=== PATIENT | female | born 1980 | race Hispanic/Latino ===

== ENCOUNTER 2021-09-23 08:06 | Emergency (ER) | payer SELFPAY ==
[~2021-09-23] VITALS: Ht 167.6 cm; Wt 108.0 kg
[2021-09-23] MEDS ORDERED: ACETAMINOPHEN500 MG PO (08:36)
[2021-09-23] MEDS ORDERED: INDOCIN50 MG PO (08:36)
[2021-09-23] MEDS ORDERED: IBUPROFEN 600 MG TAB PO ONE (08:45)
[2021-09-23] MEDS ORDERED: IBUPROFEN 600 MG TAB ONE (08:50)
[2021-09-23] MEDS ORDERED: INDOMETHACIN 25 MG CAP PO ONE (09:00)
== END 2021-09-23 09:08 | disposition home or self-care (01) ==
LOC: FSED 08:15
DX: M10.9 Gout, unspecified (principal); M79.675 Pain in left toe(s)
CPT/HCPCS: 99282